=== PATIENT | female | born 1960 | race African-American/Black ===

== ENCOUNTER 2019-06-21 09:06 | Inpatient (IN) ==
[2019-06-21] MEDS ORDERED: SODIUM CHLORIDE 0.9% 1,000 ML IV STA (10:00)
[2019-06-21] MEDS ORDERED: INSULIN LISPRO 100 UNIT/ML SUBCUT STA (10:00)
[2019-06-21 10:34] LABS: Basophils # 0.1 10*3/uL (0.0-0.2); Basophils % 0.4 % (0.0-0.8); Hematocrit 46.1 VOL% (35.7-47.0); Hemoglobin 14.6 GM/DL (12.0-16.0); Immature Granulocytes % 0.5 %; Immature Granulocytes Absolute 0.06 #; Lymphocytes # 0.9 10*3/uL (1.4-4.0); Mean Corpuscular HGB Conc 31.7 GM/DL (32-36); Mean Corpuscular Volume 82.5 FL (87-102); Mean Platelet Volume 11.8 FL (9.6-12.0); Monocytes % 5.1 % (1.7-12.7); Platelet Count 347 T/CUMM (130-400); Red Blood Count 5.59 MC/CUMM (3.8-5.5); Red Cell Distribution Width 14.6 % (9.3-17.3); White Blood Count 11.3 T/CUMM (4-12)
[2019-06-21 10:59] LABS: Bilirubin,Total 0.8 MG/DL (0.2-1.0); Calcium 9.9 MG/DL (8.5-10.1); Osmolality,Calculated 296.1 MOS/KG (273-304); Total Protein 9.1 G/DL (6.4-8.3)
[2019-06-21] MEDS ORDERED: MAGNESIUM SULF RIDER 4 GM in PREMIX 1 EACH IV PRN (11:37)
[2019-06-21] MEDS ORDERED: MAGNESIUM SULF RIDER 2 GM in PREMIX 1 EACH IV PRN (11:37)
[2019-06-21] MEDS ORDERED: DEXTROSE 50% 25 GM/50 ML VIAL IV PRN (11:37)
[2019-06-21] MEDS ORDERED: ALBUTEROL 2.5 MG/3 ML NEB RESP TX PRN (11:37)
[2019-06-21] MEDS ORDERED: SODIUM CHLORIDE 0.9% 1,000 ML IV ONE (11:37)
[2019-06-21] MEDS ORDERED: INSULIN REGULAR 100 UNIT/ML IV ONE ×3 (11:37→18:20)
[2019-06-21] MEDS ORDERED: SODIUM PHOSPHATE IV PRN (11:37)
[2019-06-21] MEDS ORDERED: SODIUM CHLORIDE 0.9% IV PRN (11:37)
[2019-06-21] MEDS ORDERED: ONDANSETRON 4 MG/2 ML VIAL IV PRN (11:37)
[2019-06-21] MEDS ORDERED: DEXTROSE 10% 250 ML BAG IV PRN (11:37)
[2019-06-21] MEDS ORDERED: SODIUM BICARB INJ 100 MEQ in STERILE WATER INJ 400 ML IV PRN (11:37)
[2019-06-21] MEDS ORDERED: ACETAMINOPHEN 325 MG TABLET PO PRN (11:37)
[2019-06-21 12:20] LABS: ABG Base Excess -22.9 MMOL/L (-2.5-2.5); ABG HCO3 8.7 MMOL/L (20-26); ABG Oxygen Saturation 97.9 % (95-100); ABG TCO2 4.4 MMOL/L (23-27)
[2019-06-21 12:24] LABS: ABG PCO2 13.1 MM HG (35-48); ABG PH 7.179 (7.35-7.45)
[2019-06-21 12:25] LABS: Apearance,Urine CLEAR (Clear); Bacteria,Urine Occasional /HPF (Few); Bilirubin,Urine Negative (Negative); Blood, Urine Small mg/dL (Negative); Glucose,Urine (UA) >=500 mg/dL (Negative); Hyaline Casts,Urine 11 /LPF (0-3); Ketones,Urine 80 mg/dL (Negative); Mucus,Urine Occasional /LPF (Occasional); Nitrite,Urine Negative (Negative); Protein,Urine Negative; RBC,Urine 2 /HPF (0-4); Squamous Epithelial Cell,Urine Occasional /HPF (0-10); Urine Color Yellow (Yellow); Urine Specific Gravity 1.017 (1.001-1.035); Urine Urobilinogen < 2.0 EU/DL (0.2-1.0); WBC,Urine 2 /HPF (0-6)
[2019-06-21] MEDS ORDERED: cefTRIAXone 1,000 MG in SYRINGE 1 EACH IV SCH (12:30)
[2019-06-21] MEDS: INSULIN REGULAR DRIP 100 ML IV SCH (13:13)
[2019-06-21] MEDS: ENOXAPARIN 40 MG/0.4 ML SYRINGE SUBCUT SCH (13:18)
[2019-06-21] MEDS: SODIUM CHLORIDE 0.9% 1,000 ML IV SCH ×2 (14:04→16:18)
[2019-06-21 14:37] LABS: ABG Base Excess -19.2 MMOL/L (-2.5-2.5); ABG HCO3 6.2 MMOL/L (20-26); ABG Oxygen Saturation 96.5 % (95-100); ABG PO2 97.6 MM HG (80-95); ABG TCO2 6.6 MMOL/L (23-27); Allen Test Positive; Pt O2 Delivery Device Room Air
[2019-06-21 14:40] LABS: ABG PCO2 15.4 MM HG (35-48)
[2019-06-21] MEDS ORDERED: DEXTROSE 5% NACL 0.9% 1,000 ML IV SCH ×2 (16:15→18:20)
[2019-06-21] MEDS ORDERED: SODIUM CHLORIDE 0.9% 1,000 ML IV SCH (16:38)
[2019-06-21 17:32] LABS: Calcium 8.1 MG/DL (8.5-10.1); Osmolality,Calculated 293.1 MOS/KG (273-304)
[2019-06-21 20:23] LABS: Calcium 7.7 MG/DL (8.5-10.1); Osmolality,Calculated 300.8 MOS/KG (273-304)
[2019-06-21] MEDS ORDERED: SODIUM CHLORIDE 0.45% 1,000 ML IV SCH (21:00)
[2019-06-21] MEDS: POTASSIUM CHLORIDE RIDER 10 MEQ in PREMIX 1 EACH IV PRN ×2 (22:40→23:42)
[2019-06-21] MEDS ORDERED: DEXTROSE 5% NACL 0.45% 1,000 ML IV SCH (23:30)
[2019-06-22] MEDS: POTASSIUM CHLORIDE RIDER 10 MEQ in PREMIX 1 EACH IV PRN ×7 (00:35→09:25)
[2019-06-22 00:50] LABS: Calcium 7.8 MG/DL (8.5-10.1); Osmolality,Calculated 289.8 MOS/KG (273-304)
[2019-06-22] MEDS: INSULIN REGULAR DRIP 100 ML IV SCH (00:59)
[2019-06-22 05:42] LABS: Basophils % 0.5 % (0.0-0.8); Eosinophils % 0.2 % (0.00-10.9); Hematocrit 31.8 VOL% (35.7-47.0); Hemoglobin 10.5 GM/DL (12.0-16.0); Immature Granulocytes % 0.4 %; Immature Granulocytes Absolute 0.03 #; Lymphocytes # 1.1 10*3/uL (1.4-4.0); Lymphocytes % 12.8 % (21.3-54.2); Mean Corpuscular Volume 79.9 FL (87-102); Mean Platelet Volume 11.7 FL (9.6-12.0); Monocytes % 11.9 % (1.7-12.7); Neutrophils % 74.2 % (38.7-73.9); Platelet Count 217 T/CUMM (130-400); Red Blood Count 3.98 MC/CUMM (3.8-5.5); Red Cell Distribution Width 14.6 % (9.3-17.3); White Blood Count 8.3 T/CUMM (4-12)
[2019-06-22] MEDS: SODIUM CHLORIDE 0.45% 1,000 ML IV SCH ×3 (06:17→23:58)
[2019-06-22] MEDS ORDERED: GLUCAGON 1 MG VIAL IM PRN (07:45)
[2019-06-22] MEDS: INSULIN REGULAR 100 UNIT/ML SUBCUT SCH ×4 (07:46→23:56)
[2019-06-22] MEDS ORDERED: DEXTROSE 10% 250 ML BAG IV PRN (07:49)
[2019-06-22] MEDS: PARoxetine 10 MG TABLET PO SCH (09:22)
[2019-06-22] MEDS: PANTOPRAZOLE 40 MG TABLET PO SCH (09:22)
[2019-06-22] MEDS: INSULIN GLARGINE 100 UNIT/ML SUBCUT SCH (09:22)
[2019-06-22] MEDS ORDERED: INSULIN REGULAR 100 UNIT/ML SUBCUT SCH (10:00)
[2019-06-22 11:21] LABS: Calcium 7.8 MG/DL (8.5-10.1); Osmolality,Calculated 281.7 MOS/KG (273-304)
[2019-06-22] MEDS: ENOXAPARIN 40 MG/0.4 ML SYRINGE SUBCUT SCH (11:41)
[2019-06-22] MEDS ORDERED: INSULIN REGULAR DRIP 100 ML IV PRN (11:48)
[2019-06-22] MEDS ORDERED: INSULIN REGULAR 100 UNIT/ML IV ONE (11:55)
[2019-06-22 15:50] LABS: Osmolality,Calculated 276.4 MOS/KG (273-304)
[2019-06-22] MEDS ORDERED: SODIUM CHLOR 0.9% KCL 40 MEQ 40 MEQ/1,000 ML BAG IV SCH (16:00)
[2019-06-22] MEDS: POTASSIUM CHLORIDE 20 MEQ TABLET PO PRN ×4 (16:24→23:55)
[2019-06-22] MEDS ORDERED: DEXTROSE 5% NACL 0.45% 1,000 ML IV PRN (17:00)
[2019-06-22 19:49] LABS: Calcium 7.7 MG/DL (8.5-10.1); Osmolality,Calculated 274.5 MOS/KG (273-304)
[2019-06-22 23:27] LABS: Calcium 7.8 MG/DL (8.5-10.1); Osmolality,Calculated 281.4 MOS/KG (273-304)
[2019-06-23] MEDS: POTASSIUM CHLORIDE 20 MEQ TABLET PO PRN ×2 (03:26→09:36)
[2019-06-23 03:48] LABS: Calcium 7.9 MG/DL (8.5-10.1); Osmolality,Calculated 277.4 MOS/KG (273-304)
[2019-06-23] MEDS: SODIUM CHLORIDE 0.45% 1,000 ML IV SCH (05:20)
[2019-06-23] MEDS: INSULIN REGULAR 100 UNIT/ML SUBCUT SCH ×5 (06:23→20:29)
[2019-06-23] MEDS ORDERED: GLUCAGON 1 MG VIAL IM PRN (07:17)
[2019-06-23] MEDS ORDERED: DEXTROSE 50% 25 GM/50 ML VIAL IV PRN (07:17)
[2019-06-23 07:45] LABS: Calcium 7.9 MG/DL (8.5-10.1); Osmolality,Calculated 274.5 MOS/KG (273-304)
[2019-06-23] MEDS: PANTOPRAZOLE 40 MG TABLET PO SCH (08:25)
[2019-06-23] MEDS: PARoxetine 10 MG TABLET PO SCH (08:25)
[2019-06-23] MEDS: INSULIN GLARGINE 100 UNIT/ML SUBCUT SCH (08:25)
[2019-06-23] MEDS ORDERED: INSULIN GLARGINE 100 UNIT/ML SUBCUT SCH (09:00)
[2019-06-23] MEDS ORDERED: metFORMIN 500 MG TABLET PO SCH (10:38)
[2019-06-23] MEDS: ENOXAPARIN 40 MG/0.4 ML SYRINGE SUBCUT SCH (12:19)
[2019-06-23] MEDS: glyBURIDE 2.5 MG TABLET PO SCH ×2 (12:19→17:55)
[2019-06-23] MEDS: metFORMIN 850 MG TABLET PO SCH (17:55)
[2019-06-24] MEDS: INSULIN REGULAR 100 UNIT/ML SUBCUT SCH ×3 (00:45→08:42)
[2019-06-24] MEDS: glyBURIDE 2.5 MG TABLET PO SCH (08:43)
[2019-06-24] MEDS: PANTOPRAZOLE 40 MG TABLET PO SCH (08:44)
[2019-06-24] MEDS: metFORMIN 850 MG TABLET PO SCH (08:44)
[2019-06-24] MEDS: INSULIN GLARGINE 100 UNIT/ML SUBCUT SCH (08:44)
[2019-06-24] MEDS: PARoxetine 10 MG TABLET PO SCH (08:44)
[2019-06-24 12:02] VITALS: BP 123/66
== END 2019-06-24 11:50 | disposition home or self-care (01) | DRG 638 ==
LOC: N.ED 09:06 → SUATTDRO 11:37 → N.EDINP 11:37 → N.ICU 12:41 → N.4E 06-23 13:28
PROVIDERS: ADMIT Internal Medicine; ATTEND Internal Medicine